=== PATIENT | male | born 1960 | race Caucasian/White ===

== ENCOUNTER → 2019-11-19 08:14 | Outpatient (BNVA) | payer SELFPAY | PROVIDERS: Visit Provider Physician Assistant Medical | DX: Z76.89 Persons encountering health services in other specified circumstances (principal) ==

== ENCOUNTER → 2023-11-01 07:49 | Outpatient (BNVA) | payer SELFPAY | PROVIDERS: Visit Provider Internal Medicine | DX: Z02.79 Encounter for issue of other medical certificate (principal); Z13.1 Encounter for screening for diabetes mellitus | CPT/HCPCS: 82947 ==

== ENCOUNTER → 2024-10-28 07:36 | Outpatient (BNVA) | payer SELFPAY | PROVIDERS: Visit Provider Internal Medicine | DX: Z02.79 Encounter for issue of other medical certificate (principal) ==